=== PATIENT | male | born 1960 | race Caucasian/White ===

== ENCOUNTER 2018-12-26 07:46 | Observation (INO) | payer BC, OTHER ==
[2018-12-26] MEDS ORDERED: Aspirin 81 MG Tab.Chew PO ONE (07:50)
[2018-12-26] MEDS ORDERED: Sodium Chloride 0.9% 2.5 ML Syringe FLUSH PRN (07:50)
[2018-12-26] MEDS ORDERED: Sodium Chloride 0.9% 10 ML Syringe FLUSH PRN (07:50)
--- NOTE | 2018-12-26 07:53 | EDM.PDOC ---
ED HPI GENERAL MEDICAL PROBLEM - General Chief Complaint: Chest Pain Stated Complaint: CHEST PAIN Time Seen by Provider: 12/26/18 07:49 Source of Information: Reports: Patient History Limitations: Reports: No Limitations - History of Present Illness INITIAL COMMENTS - FREE TEXT/NARRATIVE: History of present illness: []Patient awoke with 6/10 substernal chest pain radiating to his jaw with sweatiness and shortness of breath. The episode has lasted about 30 minutes and came to the ER with his pain level at 3/10. Patient has a history of anxiety. Review of systems: As per history of present illness and below otherwise all systems reviewed and negative. Past medical history: As per history of present illness and as reviewed below otherwise noncontributory. Surgical history: As per history of present illness and as reviewed below otherwise noncontributory. Social history: No reported history of drug or alcohol abuse. Family history: As per history of present illness and as reviewed below otherwise noncontributory. Physical exam: General: Well developed, well nourished, diaphoretic HEENT: Atraumatic, normocephalic, pupils reactive, negative for conjunctival pallor or scleral icterus, mucous membranes moist, throat clear, neck supple, nontender, trachea midline. Lungs: Clear to auscultation, breath sounds equal bilaterally, chest nontender. Heart: S1S2, regular, negative for clicks, rubs, or JVD. Abdomen: NABS, Soft, nondistended, nontender. Negative for masses or hepatosplenomegaly. Negative for costovertebral tenderness. Pelvis: Stable nontender. Genitourinary: Deferred. Rectal: Deferred. Extremities: Atraumatic, negative for cords or calf pain. Neurovascular unremarkable. Neuro: Awake, alert, oriented. Cranial nerves II through XII unremarkable. Cerebellum unremarkable. Motor and sensory unremarkable throughout. Exam nonfocal. Skin:warm and dry Diagnostics: EKG, CBC, chemistry, troponin, BNP, chest x-ray Therapeutics: Aspirin, nitroglycerin ED Course: Stable, hospitalist will admit patient to observation Impression: Chest pain Prescriptions: None Plan: Admit for rule out NE Definitive disposition and diagnosis as appropriate pending reevaluation and review of above. Head Pain Score (Numeric/FACES): 2 left chest Pain Score (Numeric/FACES): 3 - Related Data Allergies Allergy/AdvReac Type Severity Reaction Status Date / Time No Known Allergies Allergy Verified 12/26/18 10:12 Home Meds: Home Meds Lisinopril 40 mg PO DAILY 12/26/18 [History] ED ROS GENERAL - Review of Systems Review Of Systems: See Below ED EXAM, GENERAL - Physical Exam Exam: See Below Course - Vital Signs Last Recorded V/S: Last Vital Signs Temp 98.5 F 12/26/18 12:00 Pulse 70 12/26/18 12:00 Resp 20 12/26/18 12:00 BP 145/73 H 12/26/18 12:00 Pulse Ox 97 12/26/18 12:00 - Orders/Labs/Meds Orders: Active Orders 24 hr Category Date Time Status Patient Status [ADT] Stat ADT 12/26/18 09:22 Active Cardiac Monitoring [RC] . DIRECTED Care 12/26/18 07:49 Active EKG Documentation Completion [RC] STAT Care 12/26/18 07:49 Active Oxygen Therapy Adult [Oxygen Therapy, ED] [RC] Care 12/26/18 08:21 Active ASDIRECTED Nitroglycerin [Nitrostat] Med 12/26/18 07:50 Active 0.4 mg SL Q5M PRN Sodium Chloride 0.9% [Saline Flush] Med 12/26/18 07:50 Active 10 ml FLUSH ASDIRECTED PRN Sodium Chloride 0.9% [Saline Flush] Med 12/26/18 07:50 Active 2.5 ml FLUSH ASDIRECTED PRN Saline Lock Insert [OM.PC] Stat Oth 12/26/18 07:49 Ordered Medication Orders Acetaminophen (Tylenol) 650 mg PO Q4H PRN PRN Reason: Pain Last Admin: 12/26/18 13:17 Dose: 650 mg Enoxaparin Sodium (Lovenox) 40 mg SUBCUT Q24H JAYCE Last Admin: 12/26/18 10:10 Dose: 40 mg Lisinopril (Prinivil) 40 mg PO BEDTIME JAYCE Nitroglycerin (Nitrostat) 0.4 mg SL Q5M PRN PRN Reason: Chest Pain Last Admin: 12/26/18 08:04 Dose: 0.4 mg Admin: 12/26/18 07:57 Dose: 0.4 mg Pantoprazole Sodium (Protonix) 40 mg PO ACBREAKFAST JAYCE Sodium Chloride (Saline Flush) 10 ml FLUSH ASDIRECTED PRN PRN Reason: Keep Vein Open Last Admin: 12/26/18 07:58 Dose: 10 ml Sodium Chloride (Saline Flush) 2.5 ml FLUSH ASDIRECTED PRN PRN Reason: Keep Vein Open Last Admin: 12/26/18 07:58 Dose: 2.5 ml Temazepam (Restoril) 15 mg PO BEDTIME PRN PRN Reason: Insomnia Labs: Laboratory Tests 12/26/18 12/26/18 12/26/18 Range/Units 07:50 07:50 07:50 WBC 7.87 (4.0-11.0) K/uL RBC 5.24 (4.50-5.90) M/uL Hgb 16.2 (13.0-17.0) g/dL Hct 48.3 (38.0-50.0) % MCV 92.2 (80.0-98.0) fL MCH 30.9 (27.0-32.0) pg MCHC 33.5 (31.0-37.0) g/dL RDW Std Deviation 42.8 (28.0-62.0) fl RDW Coeff of Bruno 13 (11.0-15.0) % Plt Count 233 (150-400) K/uL MPV 10.10 (7.40-12.00) fL Neut % (Auto) 59.5 (48.0-80.0) % Lymph % (Auto) 28.2 (16.0-40.0) % [place] % (Auto) 10.0 (0.0-15.0) % Eos % (Auto) 1.8 (0.0-7.0) % Baso % (Auto) 0.5 (0.0-1.5) % Neut # (Auto) 4.7 (1.4-5.7) K/uL Lymph # (Auto) 2.2 (0.6-2.4) K/uL [place] # (Auto) 0.8 (0.0-0.8) K/uL Eos # (Auto) 0.1 (0.0-0.7) K/uL Baso # (Auto) 0.0 (0.0-0.1) K/uL Nucleated RBC % 0.0 /100WBC Nucleated RBCs # 0 K/uL Sodium 141 (136-148) mmol/L Potassium 4.3 (3.5-5.1) mmol/L Chloride 105 (98-107) mmol/L Carbon Dioxide 26.6 (21.0-32.0) mmol/L BUN 20 H (7.0-18.0) mg/dL Creatinine 1.2 (0.8-1.3) mg/dL Est Cr Clr Drug Dosing 61.20 mL/min Estimated GFR (MDRD) > 60.0 ml/min Glucose 126 H (74-106) mg/dL Calcium 9.0 (8.5-10.1) mg/dL Total Bilirubin 0.7 (0.2-1.0) mg/dL AST 62 H (15-37) IU/L ALT 123 H (14-63) IU/L Alkaline Phosphatase 111 (46-116) U/L Troponin I < 0.050 (0.000-0.056) ng/mL B-Natriuretic Peptide 22 (<100) PG/ML Total Protein 7.2 (6.4-8.2) g/dL Albumin 3.8 (3.4-5.0) g/dL Globulin 3.4 (2.6-4.0) g/dL Albumin/Globulin Ratio 1.1 (0.9-1.6) Triglycerides (0-200) mg/dL Cholesterol (50-200) mg/dL LDL Cholesterol, Calc (60-180) mg/dL VLDL Cholesterol (5-55) mg/dL HDL Cholesterol (40-60) mg/dL Cholesterol/HDL Ratio (3.3-6.0) 12/26/18 Range/Units 07:50 WBC (4.0-11.0) K/uL RBC (4.50-5.90) M/uL Hgb (13.0-17.0) g/dL Hct (38.0-50.0) % MCV (80.0-98.0) fL MCH (27.0-32.0) pg MCHC (31.0-37.0) g/dL RDW Std Deviation (28.0-62.0) fl RDW Coeff of Bruno (11.0-15.0) % Plt Count (150-400) K/uL MPV (7.40-12.00) fL Neut % (Auto) (48.0-80.0) % Lymph % (Auto) (16.0-40.0) % [place] % (Auto) (0.0-15.0) % Eos % (Auto) (0.0-7.0) % Baso % (Auto) (0.0-1.5) % Neut # (Auto) (1.4-5.7) K/uL Lymph # (Auto) (0.6-2.4) K/uL [place] # (Auto) (0.0-0.8) K/uL Eos # (Auto) (0.0-0.7) K/uL Baso # (Auto) (0.0-0.1) K/uL Nucleated RBC % /100WBC Nucleated RBCs # K/uL Sodium (136-148) mmol/L Potassium (3.5-5.1) mmol/L Chloride (98-107) mmol/L Carbon Dioxide (21.0-32.0) mmol/L BUN (7.0-18.0) mg/dL Creatinine (0.8-1.3) mg/dL Est Cr Clr Drug Dosing mL/min Estimated GFR (MDRD) ml/min Glucose (74-106) mg/dL Calcium (8.5-10.1) mg/dL Total Bilirubin (0.2-1.0) mg/dL AST (15-37) IU/L ALT (14-63) IU/L Alkaline Phosphatase (46-116) U/L Troponin I (0.000-0.056) ng/mL B-Natriuretic Peptide (<100) PG/ML Total Protein (6.4-8.2) g/dL Albumin (3.4-5.0) g/dL Globulin (2.6-4.0) g/dL Albumin/Globulin Ratio (0.9-1.6) Triglycerides 143 (0-200) mg/dL Cholesterol 220 H (50-200) mg/dL LDL Cholesterol, Calc 155 (60-180) mg/dL VLDL Cholesterol 28 (5-55) mg/dL HDL Cholesterol 36 L (40-60) mg/dL Cholesterol/HDL Ratio 6.1 H (3.3-6.0) Meds: Medications Generic Name Dose Route Start Last Admin Trade Name Freq PRN Reason Stop Dose Admin Acetaminophen 650 mg 12/26/18 09:36 12/26/18 13:17 Tylenol PO 650 mg Q4H PRN Administration Pain Enoxaparin Sodium 40 mg 12/26/18 09:45 12/26/18 10:10 Lovenox SUBCUT 40 mg Q24H JAYCE Administration Lisinopril 40 mg 12/26/18 21:00 Prinivil PO BEDTIME JAYCE Nitroglycerin 0.4 mg 12/26/18 07:50 12/26/18 08:04 Nitrostat SL 0.4 mg Q5M PRN Administration Chest Pain Pantoprazole Sodium 40 mg 12/27/18 07:30 Protonix PO ACBREAKFAST JAYCE Sodium Chloride 10 ml 12/26/18 07:50 12/26/18 07:58 Saline Flush FLUSH 10 ml ASDIRECTED PRN Administration Keep Vein Open Sodium Chloride 2.5 ml 12/26/18 07:50 12/26/18 07:58 Saline Flush FLUSH 2.5 ml ASDIRECTED PRN Administration Keep Vein Open Temazepam 15 mg 12/26/18 09:36 Restoril PO BEDTIME PRN Insomnia Discontinued Medications Generic Name Dose Route Start Last Admin Trade Name Freq PRN Reason Stop Dose Admin Aspirin 324 mg 12/26/18 07:50 12/26/18 07:58 Aspirin PO 12/26/18 07:51 324 mg ONETIME ONE Administration Lisinopril 40 mg 12/26/18 10:00 12/26/18 11:25 Prinivil PO Not Given DAILY COUNTS INCLUDE 234 BEDS AT THE [facility] Morphine Sulfate 2 mg 12/26/18 08:44 12/26/18 09:16 Morphine IVPUSH 12/26/18 08:45 2 mg ONETIME ONE Administration Ondansetron HCl 4 mg 12/26/18 08:44 12/26/18 09:16 Zofran IVPUSH 12/26/18 08:45 4 mg ONETIME ONE Administration Departure - Departure Time of Disposition: 09:45 Disposition: Refer to Observation Condition: Good Clinical Impression: Chest pain Qualifiers: Chest pain type: unspecified Qualified Code(s): R07.9 - Chest pain, unspecified - My Orders Last 24 Hours: My Active Orders 12/26/18 07:49 Cardiac Monitoring [RC] . DIRECTED EKG Documentation Completion [RC] STAT Saline Lock Insert [OM.PC] Stat 12/26/18 07:50 Nitroglycerin [Nitrostat] 0.4 mg SL Q5M PRN Sodium Chloride 0.9% [Saline Flush] 10 ml FLUSH ASDIRECTED PRN Sodium Chloride 0.9% [Saline Flush] 2.5 ml FLUSH ASDIRECTED PRN 12/26/18 08:21 Oxygen Therapy Adult [Oxygen Therapy, ED] [RC] ASDIRECTED 12/26/18 09:22 Patient Status [ADT] Stat - Assessment/Plan Last 24 Hours: My Active Orders 12/26/18 07:49 Cardiac Monitoring [RC] . DIRECTED EKG Documentation Completion [RC] STAT Saline Lock Insert [OM.PC] Stat 12/26/18 07:50 Nitroglycerin [Nitrostat] 0.4 mg SL Q5M PRN Sodium Chloride 0.9% [Saline Flush] 10 ml FLUSH ASDIRECTED PRN Sodium Chloride 0.9% [Saline Flush] 2.5 ml FLUSH ASDIRECTED PRN 12/26/18 08:21 Oxygen Therapy Adult [Oxygen Therapy, ED] [RC] ASDIRECTED 12/26/18 09:22 Patient Status [ADT] Stat
[2018-12-26] MEDS: Nitroglycerin 0.4 MG Tab.SL SL PRN ×2 (07:57→08:04)
[2018-12-26 08:36] LABS: BLOOD UREA NITROGEN,BUN 20 mg/dL (7.0-18.0); CARBON DIOXIDE,CO2 26.6 mmol/L (21.0-32.0); CHLORIDE,CL 105 mmol/L (98-107); GLUCOSE RANDOM 126 mg/dL (74-106); POTASSIUM,K 4.3 mmol/L (3.5-5.1); SODIUM,NA 141 mmol/L (136-148)
--- NOTE | 2018-12-26 08:41 | CR ---
INDICATION: Left-sided chest pain with radiation to jaw/shoulder for 30 minutes. SOB. TECHNIQUE: Upright portable AP image of the chest. COMPARISON: None. FINDINGS: Lungs and pleural spaces clear. Heart borderline enlarged. Pulmonary veins normal in caliber. No significant osseous abnormality. IMPRESSION: 1. Borderline cardiomegaly. 2. Clear lungs. Dictated by Ronny Mejia MD @ Dec 26 2018 8:34AM Signed by Dr. Ronny Mejia @ Dec 26 2018 8:40AM
[2018-12-26] MEDS ORDERED: Ondansetron 4 MG/2 ML SDV IVPUSH ONE (08:44)
[2018-12-26] MEDS ORDERED: Morphine 2 MG/ML Syringe IVPUSH ONE (08:44)
[2018-12-26] MEDS ORDERED: Temazepam 15 MG Cap PO PRN (09:36)
[2018-12-26] MEDS ORDERED: Acetaminophen 325 MG Tab PO PRN (09:36)
[2018-12-26] MEDS ORDERED: Enoxaparin 40 MG/0.4 ML Syringe SUBCUT SCH (09:45)
--- NOTE | 2018-12-26 09:47 | PCM.HP.2 ---
<Farrukh Rdz - Last Filed: 12/26/18 10:32> H&P History of Present Illness - General Date of Service: 12/26/18 Admit Problem/Dx: Admission Diagnosis/Problem Admission Diagnosis/Problem Chest pain - History of Present Illness Initial Comments - Free Text/Narative: patient is a 58-year-old male with a significant past medical history of anxiety , GERD, asthma, obesity; presenting to [facility] ED secondary to chest pain. Mentions waking up and having a initially sharp pain in his chest which transformed into a pressure type sensation with radiation to left arm and some jaw discomfort as well. Patient states he woke up and had pain and was not woken up by the pain. Patient also was complaining of some sweating without shortness of breath. Denies fevers, or lower actually swelling. Patient did have some nausea and mild abdominal discomfort which states she is gotten better since admission. At bedside: patient is only endorsing a mild frontal headache. Otherwise denies any chest pain, shortness of breath, diarrhea, constipation, lower ext. swelling or any other acute symptoms. Medications: patient was on medication for anxiety however has not taken it for many years. Has uses albuterol once 3 months ago for shortness of breath and wheezing. Does endorse occasional reflux symptoms and uses [id number] Tums. Mentions having a big dinner last night and having to use Tums. left chest Pain Score (Numeric/FACES): 3 - Related Data Allergies/Adverse Reactions: Allergies Allergy/AdvReac Type Severity Reaction Status Date / Time No Known Allergies Allergy Verified 12/26/18 10:12 Home Medications: Home Meds Lisinopril 40 mg PO DAILY 12/26/18 [History] Past Medical History Cardiovascular History: Reports: Hypertension Psychiatric History: Reports: Anxiety, Depression - Infectious Disease History Infectious Disease History: Reports: Chicken Pox, Measles, Mumps - Past Surgical History Male Surgical History: Reports: Vasectomy Musculoskeletal Surgical History: Reports: Carpal Tunnel, Knee Replacement Social & Family History - Family History Cardiac: Reports: Heart Failure - Tobacco Use Smoking Status *Q: Never Smoker - Recreational Drug Use Recreational Drug Use: No H&P Review of Systems - Review of Systems: Review Of Systems: See Below General: Reports: No Symptoms, Diaphoresis. Denies: Fever, Chills, Malaise HEENT: Reports: No Symptoms Pulmonary: Reports: No Symptoms. Denies: Shortness of Breath, Wheezing Cardiovascular: Reports: Blood Pressure Problem. Denies: Chest Pain, Palpitations, Lightheadedness, Syncope Gastrointestinal: Reports: Nausea. Denies: Abdominal Pain, Constipation, Diarrhea, Decreased Appetite Genitourinary: Reports: No Symptoms Musculoskeletal: Reports: No Symptoms Psychiatric: Reports: No Symptoms. Denies: Confusion, Depression Neurological: Denies: Confusion, Dizziness Exam - Exam Exam: See Below - Vital Signs Vital Signs: Last Vital Signs Temp 96.4 F 12/26/18 07:50 Pulse 95 12/26/18 09:16 Resp 16 12/26/18 09:16 BP 136/86 12/26/18 09:16 Pulse Ox 98 12/26/18 09:16 Weight: 102.058 kg - Exam General: Alert, Oriented, Cooperative HEENT: Conjunctiva Clear, EOMI, Hearing Intact Neck: Supple, Trachea Midline Lungs: Clear to Auscultation, Normal Respiratory Effort Cardiovascular: Regular Rate, Regular Rhythm GI/Abdominal Exam: Normal Bowel Sounds, Soft, Non-Tender, Other (obese) Back Exam: Normal Inspection, Full Range of Motion Extremities: Normal Range of Motion, Non-Tender, No Pedal Edema Skin: Warm, Dry, Intact Neuro Extensive - Mental Status: Alert, Oriented x3, Normal Mood/Affect Psychiatric: Alert, Normal Affect, Normal Mood - Patient Data Lab Results Last 24 hrs: Laboratory Results - last 24 hr 12/26/18 12/26/18 12/26/18 Range/Units 07:50 07:50 07:50 WBC 7.87 (4.0-11.0) K/uL RBC 5.24 (4.50-5.90) M/uL Hgb 16.2 (13.0-17.0) g/dL Hct 48.3 (38.0-50.0) % MCV 92.2 (80.0-98.0) fL MCH 30.9 (27.0-32.0) pg MCHC 33.5 (31.0-37.0) g/dL RDW Std Deviation 42.8 (28.0-62.0) fl RDW Coeff of Bruno 13 (11.0-15.0) % Plt Count 233 (150-400) K/uL MPV 10.10 (7.40-12.00) fL Neut % (Auto) 59.5 (48.0-80.0) % Lymph % (Auto) 28.2 (16.0-40.0) % Dade % (Auto) 10.0 (0.0-15.0) % Eos % (Auto) 1.8 (0.0-7.0) % Baso % (Auto) 0.5 (0.0-1.5) % Neut # (Auto) 4.7 (1.4-5.7) K/uL Lymph # (Auto) 2.2 (0.6-2.4) K/uL Dade # (Auto) 0.8 (0.0-0.8) K/uL Eos # (Auto) 0.1 (0.0-0.7) K/uL Baso # (Auto) 0.0 (0.0-0.1) K/uL Nucleated RBC % 0.0 /100WBC Nucleated RBCs # 0 K/uL Sodium 141 (136-148) mmol/L Potassium 4.3 (3.5-5.1) mmol/L Chloride 105 (98-107) mmol/L Carbon Dioxide 26.6 (21.0-32.0) mmol/L BUN 20 H (7.0-18.0) mg/dL Creatinine 1.2 (0.8-1.3) mg/dL Est Cr Clr Drug Dosing 61.20 mL/min Estimated GFR (MDRD) > 60.0 ml/min Glucose 126 H (74-106) mg/dL Calcium 9.0 (8.5-10.1) mg/dL Total Bilirubin 0.7 (0.2-1.0) mg/dL AST 62 H (15-37) IU/L ALT 123 H (14-63) IU/L Alkaline Phosphatase 111 (46-116) U/L Troponin I < 0.050 (0.000-0.056) ng/mL B-Natriuretic Peptide 22 (<100) PG/ML Total Protein 7.2 (6.4-8.2) g/dL Albumin 3.8 (3.4-5.0) g/dL Globulin 3.4 (2.6-4.0) g/dL Albumin/Globulin Ratio 1.1 (0.9-1.6) Result Diagrams: 12/26/18 07:50 12/26/18 07:50 - Problem List (1) Chest pain SNOMED Code(s): 57136726 ICD Code: R07.9 - CHEST PAIN, UNSPECIFIED Status: Acute Current Visit: Yes (2) Obesity SNOMED Code(s): 971509213, 023269803 ICD Code: E66.9 - OBESITY, UNSPECIFIED Status: Acute Current Visit: Yes (3) GERD (gastroesophageal reflux disease) SNOMED Code(s): 337497633 ICD Code: K21.9 - GASTRO-ESOPHAGEAL REFLUX DISEASE WITHOUT ESOPHAGITIS Status: Acute Current Visit: Yes (4) Anxiety SNOMED Code(s): 50321058 ICD Code: F41.9 - ANXIETY DISORDER, UNSPECIFIED Status: Acute Current Visit: Yes (5) Asthma SNOMED Code(s): 766408029 ICD Code: J45.909 - UNSPECIFIED ASTHMA, UNCOMPLICATED Status: Acute Current Visit: Yes Problem List Initiated/Reviewed/Updated: Yes Orders Last 24hrs: Active Orders 24 hr Category Date Time Status Patient Status [ADT] Stat ADT 12/26/18 09:22 Active Activity as Tolerated [RC] .Routine Care 12/26/18 09:30 Active Cardiac Monitoring [RC] . DIRECTED Care 12/26/18 07:49 Active EKG Documentation Completion [RC] STAT Care 12/26/18 07:49 Active Intake and Output [RC] ASDIRECTED Care 12/26/18 09:30 Active Oxygen Therapy Adult [Oxygen Therapy, ED] [RC] Care 12/26/18 08:21 Active ASDIRECTED Telemetry Monitoring [Cardiac Monitoring] [RC] . Care 12/26/18 09:34 Active DIRECTED Vital Signs [RC] PER UNIT ROUTINE Care 12/26/18 09:30 Active Heart Healthy Diet [DIET] Diet 12/26/18 Lunch Active Acetaminophen [Tylenol] Med 12/26/18 09:36 Ordered 650 mg PO Q4H PRN Enoxaparin [Lovenox] Med 12/26/18 09:45 Ordered 40 mg SUBCUT Q24H Nitroglycerin [Nitrostat] Med 12/26/18 07:50 Active 0.4 mg SL Q5M PRN Pantoprazole [ProTONIX] Med 12/27/18 07:30 Ordered 40 mg PO ACBREAKFAST Sodium Chloride 0.9% [Saline Flush] Med 12/26/18 07:50 Active 10 ml FLUSH ASDIRECTED PRN Sodium Chloride 0.9% [Saline Flush] Med 12/26/18 07:50 Active 2.5 ml FLUSH ASDIRECTED PRN Temazepam [Restoril] Med 12/26/18 09:36 Ordered 15 mg PO BEDTIME PRN Saline Lock Insert [OM.PC] Stat Oth 12/26/18 07:49 Ordered Code Status [Resuscitation Status] Stat Resus Stat 12/26/18 09:29 Ordered Medication Orders Acetaminophen (Tylenol) 650 mg PO Q4H PRN PRN Reason: Pain Enoxaparin Sodium (Lovenox) 40 mg SUBCUT Q24H JAYCE Nitroglycerin (Nitrostat) 0.4 mg SL Q5M PRN PRN Reason: Chest Pain Last Admin: 12/26/18 08:04 Dose: 0.4 mg Admin: 12/26/18 07:57 Dose: 0.4 mg Pantoprazole Sodium (Protonix) 40 mg PO ACBREAKFAST JAYCE Sodium Chloride (Saline Flush) 10 ml FLUSH ASDIRECTED PRN PRN Reason: Keep Vein Open Last Admin: 12/26/18 07:58 Dose: 10 ml Sodium Chloride (Saline Flush) 2.5 ml FLUSH ASDIRECTED PRN PRN Reason: Keep Vein Open Last Admin: 12/26/18 07:58 Dose: 2.5 ml Temazepam (Restoril) 15 mg PO BEDTIME PRN PRN Reason: Insomnia Assessment/Plan Comment:: Assessment: 1. Chest pain with ACS rule out 2. Transaminitis 3. hypertension 4. Past medical history of asthma, anxiety, GERD, obesity plan: Admit observation. Full code. Intake outtake per routine. Vitals per routine. DVT prophylaxis: Lovenox 40 daily. GI prophylaxis: pantoprazole 40 daily. Activity: up ad cori. diet: cardiac 1. ACS rule out: telemetry. Repeat EKG. Troponin every 6 hours 3. Chest x-ray: borderline cardiomegaly. Aspirin daily. Repeat CBC CMP in a.m. 2. Hypertension: continue home medicine of lisinopril 40 daily 3. Past medical history: continue to monitor 4. Transaminitis: Marginal; we'll continue to monitor at this time. <[place],Rashel - Last Filed: 12/26/18 12:44> H&P History of Present Illness - General Admit Problem/Dx: Admission Diagnosis/Problem Admission Diagnosis/Problem Chest pain I have seen and examined the patient independently of medical staff specialist, Dr. Kendell MD. I have reviewed and agree with the plan of care as outlined for this patient by him. I have discussed the case with him. Please see orders. left chest Pain Score (Numeric/FACES): 3 Head Pain Score (Numeric/FACES): 2 Exam - Vital Signs Vital Signs: Last Vital Signs Temp 36.4 C 12/26/18 09:30 Pulse 67 12/26/18 09:30 Resp 16 12/26/18 09:30 BP 139/81 12/26/18 09:30 Pulse Ox 95 12/26/18 09:30 - Patient Data Lab Results Last 24 hrs: Laboratory Results - last 24 hr 12/26/18 12/26/18 12/26/18 Range/Units 07:50 07:50 07:50 WBC 7.87 (4.0-11.0) K/uL RBC 5.24 (4.50-5.90) M/uL Hgb 16.2 (13.0-17.0) g/dL Hct 48.3 (38.0-50.0) % MCV 92.2 (80.0-98.0) fL MCH 30.9 (27.0-32.0) pg MCHC 33.5 (31.0-37.0) g/dL RDW Std Deviation 42.8 (28.0-62.0) fl RDW Coeff of Bruno 13 (11.0-15.0) % Plt Count 233 (150-400) K/uL MPV 10.10 (7.40-12.00) fL Neut % (Auto) 59.5 (48.0-80.0) % Lymph % (Auto) 28.2 (16.0-40.0) % Dade % (Auto) 10.0 (0.0-15.0) % Eos % (Auto) 1.8 (0.0-7.0) % Baso % (Auto) 0.5 (0.0-1.5) % Neut # (Auto) 4.7 (1.4-5.7) K/uL Lymph # (Auto) 2.2 (0.6-2.4) K/uL Dade # (Auto) 0.8 (0.0-0.8) K/uL Eos # (Auto) 0.1 (0.0-0.7) K/uL Baso # (Auto) 0.0 (0.0-0.1) K/uL Nucleated RBC % 0.0 /100WBC Nucleated RBCs # 0 K/uL Sodium 141 (136-148) mmol/L Potassium 4.3 (3.5-5.1) mmol/L Chloride 105 (98-107) mmol/L Carbon Dioxide 26.6 (21.0-32.0) mmol/L BUN 20 H (7.0-18.0) mg/dL Creatinine 1.2 (0.8-1.3) mg/dL Est Cr Clr Drug Dosing 61.20 mL/min Estimated GFR (MDRD) > 60.0 ml/min Glucose 126 H (74-106) mg/dL Calcium 9.0 (8.5-10.1) mg/dL Total Bilirubin 0.7 (0.2-1.0) mg/dL AST 62 H (15-37) IU/L ALT 123 H (14-63) IU/L Alkaline Phosphatase 111 (46-116) U/L Troponin I < 0.050 (0.000-0.056) ng/mL B-Natriuretic Peptide 22 (<100) PG/ML Total Protein 7.2 (6.4-8.2) g/dL Albumin 3.8 (3.4-5.0) g/dL Globulin 3.4 (2.6-4.0) g/dL Albumin/Globulin Ratio 1.1 (0.9-1.6) Triglycerides (0-200) mg/dL Cholesterol (50-200) mg/dL LDL Cholesterol, Calc (60-180) mg/dL VLDL Cholesterol (5-55) mg/dL HDL Cholesterol (40-60) mg/dL Cholesterol/HDL Ratio (3.3-6.0) 12/26/18 Range/Units 07:50 WBC (4.0-11.0) K/uL RBC (4.50-5.90) M/uL Hgb (13.0-17.0) g/dL Hct (38.0-50.0) % MCV (80.0-98.0) fL MCH (27.0-32.0) pg MCHC (31.0-37.0) g/dL RDW Std Deviation (28.0-62.0) fl RDW Coeff of Bruno (11.0-15.0) % Plt Count (150-400) K/uL MPV (7.40-12.00) fL Neut % (Auto) (48.0-80.0) % Lymph % (Auto) (16.0-40.0) % Dade % (Auto) (0.0-15.0) % Eos % (Auto) (0.0-7.0) % Baso % (Auto) (0.0-1.5) % Neut # (Auto) (1.4-5.7) K/uL Lymph # (Auto) (0.6-2.4) K/uL Dade # (Auto) (0.0-0.8) K/uL Eos # (Auto) (0.0-0.7) K/uL Baso # (Auto) (0.0-0.1) K/uL Nucleated RBC % /100WBC Nucleated RBCs # K/uL Sodium (136-148) mmol/L Potassium (3.5-5.1) mmol/L Chloride (98-107) mmol/L Carbon Dioxide (21.0-32.0) mmol/L BUN (7.0-18.0) mg/dL Creatinine (0.8-1.3) mg/dL Est Cr Clr Drug Dosing mL/min Estimated GFR (MDRD) ml/min Glucose (74-106) mg/dL Calcium (8.5-10.1) mg/dL Total Bilirubin (0.2-1.0) mg/dL AST (15-37) IU/L ALT (14-63) IU/L Alkaline Phosphatase (46-116) U/L Troponin I (0.000-0.056) ng/mL B-Natriuretic Peptide (<100) PG/ML Total Protein (6.4-8.2) g/dL Albumin (3.4-5.0) g/dL Globulin (2.6-4.0) g/dL Albumin/Globulin Ratio (0.9-1.6) Triglycerides 143 (0-200) mg/dL Cholesterol 220 H (50-200) mg/dL LDL Cholesterol, Calc 155 (60-180) mg/dL VLDL Cholesterol 28 (5-55) mg/dL HDL Cholesterol 36 L (40-60) mg/dL Cholesterol/HDL Ratio 6.1 H (3.3-6.0) Result Diagrams: 12/26/18 07:50 12/26/18 07:50 Orders Last 24hrs: Active Orders 24 hr Category Date Time Status Patient Status [ADT] Stat ADT 12/26/18 09:22 Active Activity as Tolerated [RC] .Routine Care 12/26/18 09:30 Active Cardiac Monitoring [RC] . DIRECTED Care 12/26/18 07:49 Active EKG Documentation Completion [RC] STAT Care 12/26/18 07:49 Active EKG Documentation Completion [RC] URGENT Care 12/26/18 10:25 Active Intake and Output [RC] Q12H Care 12/26/18 09:30 Active Oxygen Therapy Adult [Oxygen Therapy, ED] [RC] Care 12/26/18 08:21 Active ASDIRECTED Telemetry Monitoring [Cardiac Monitoring] [RC] . Care 12/26/18 09:34 Active DIRECTED Vital Signs [RC] PER UNIT ROUTINE Care 12/26/18 09:30 Active Heart Healthy Diet [DIET] Diet 12/26/18 Lunch Active TROPONIN I [CHEM] Routine Lab 12/26/18 14:00 Ordered Acetaminophen [Tylenol] Med 12/26/18 09:36 Active 650 mg PO Q4H PRN Enoxaparin [Lovenox] Med 12/26/18 09:45 Active 40 mg SUBCUT Q24H Lisinopril [Prinivil] Med 12/26/18 21:00 Active 40 mg PO BEDTIME Nitroglycerin [Nitrostat] Med 12/26/18 07:50 Active 0.4 mg SL Q5M PRN Pantoprazole [ProTONIX] Med 12/27/18 07:30 Active 40 mg PO ACBREAKFAST Sodium Chloride 0.9% [Saline Flush] Med 12/26/18 07:50 Active 10 ml FLUSH ASDIRECTED PRN Sodium Chloride 0.9% [Saline Flush] Med 12/26/18 07:50 Active 2.5 ml FLUSH ASDIRECTED PRN Temazepam [Restoril] Med 12/26/18 09:36 Active 15 mg PO BEDTIME PRN Saline Lock Insert [OM.PC] Stat Oth 12/26/18 07:49 Ordered Code Status [Resuscitation Status] Stat Resus Stat 12/26/18 09:29 Ordered Medication Orders Acetaminophen (Tylenol) 650 mg PO Q4H PRN PRN Reason: Pain Enoxaparin Sodium (Lovenox) 40 mg SUBCUT Q24H JAYCE Last Admin: 12/26/18 10:10 Dose: 40 mg Lisinopril (Prinivil) 40 mg PO BEDTIME JAYCE Nitroglycerin (Nitrostat) 0.4 mg SL Q5M PRN PRN Reason: Chest Pain Last Admin: 12/26/18 08:04 Dose: 0.4 mg Admin: 12/26/18 07:57 Dose: 0.4 mg Pantoprazole Sodium (Protonix) 40 mg PO ACBREAKFAST [facility] Sodium Chloride (Saline Flush) 10 ml FLUSH ASDIRECTED PRN PRN Reason: Keep Vein Open Last Admin: 12/26/18 07:58 Dose: 10 ml Sodium Chloride (Saline Flush) 2.5 ml FLUSH ASDIRECTED PRN PRN Reason: Keep Vein Open Last Admin: 12/26/18 07:58 Dose: 2.5 ml Temazepam (Restoril) 15 mg PO BEDTIME PRN PRN Reason: Insomnia
[2018-12-26] MEDS ORDERED: Lisinopril 10 MG Tab PO SCH ×2 (10:00→21:00)
[2018-12-26] MEDS ORDERED: Docusate Sodium 100 MG Cap PO PRN (18:04)
[2018-12-26] MEDS ORDERED: LORazepam 2 MG/ML SDV IVPUSH ONE (18:41)
[2018-12-26] MEDS ORDERED: Pantoprazole 40 MG Tab.CR PO ONE (21:00)
[2018-12-27 06:39] LABS: BLOOD UREA NITROGEN,BUN 17 mg/dL (7.0-18.0); CARBON DIOXIDE,CO2 27.9 mmol/L (21.0-32.0); CHLORIDE,CL 104 mmol/L (98-107); GLUCOSE RANDOM 107 mg/dL (74-106); POTASSIUM,K 4.6 mmol/L (3.5-5.1); SODIUM,NA 140 mmol/L (136-148)
[2018-12-27] MEDS ORDERED: Pantoprazole 40 MG Tab.CR PO SCH (07:30)
[2018-12-27] MEDS ORDERED: LORazepam 2 MG/ML SDV IVPUSH ONE (07:51)
--- NOTE | 2018-12-27 09:42 | PCM.DCSUM1 ---
<Farrukh Rdz - Last Filed: 12/27/18 09:36> Discharge Summary - Hospital Course Free Text/Narrative:: discharge summary: Admission date: December 26, 2018 Discharge date: December 27, 2018 Admission diagnoses: chest pain for ACS rule out Past medical history: hypertension, anxiety, obesity Discharge diagnoses: chest pain most likely secondary to anxiety versus GERD w/ ACS ruled out Past medical history: hypertension, anxiety, obesity Consultations: none Procedures: none Hospital course: Patient is a 58-year-old male with a past medical history of hypertension anxiety and obesity presenting with chest pain. States he woke up in the morning with chest pain which initially started off as a stabbing pain which transformed to a pressure-like sensation with radiation into the left arm; has had episodes in the past and was attributed to anxiety however this was more painful than usual; on arrival to [facility] ED patient was sinus on EKG, troponin 3 was negative, given ASA; admitted overnight for observation. Patient had another episode of chest discomfort at 1800 hrs.; EKG was within normal limits, patient given 1 dose of Ativan with resolution of symptoms. Following morning symptoms returned with resolution with Ativan; discussed anxiety history patient and recommended hydroxyzine for future anxiety episodes. Also recommended follow-up PCP; patient's PCP is located in [place]. And will follow up with him. Patient stable on discharge; no other complaints at this time. Discharge condition: stable Discharge instructions: advised to contact provider if symptoms of fever, chills , bodies, chest pain, shortness of breath, new symptoms against baseline develop. Disposition: home Discharge medications: lisinopril 40 Hydroxyzine 25-50 3 times a day when necessary for anxiety 5 days Follow-up: patient was followed primary care physician within 7-10 days to discuss anxiety and other health issues. - Discharge Data Discharge Date: 12/27/18 Discharge Disposition: Home, Self-Care 01 Condition: Fair - Referral to Home Health Primary Care Physician: PCP Unknown - Discharge Diagnosis/Problem(s) (1) Chest pain SNOMED Code(s): 24862853 ICD Code: R07.9 - CHEST PAIN, UNSPECIFIED Status: Acute Qualifiers: Chest pain type: unspecified Qualified Code(s): R07.9 - Chest pain, unspecified (2) Obesity SNOMED Code(s): 382534009, 399030685 ICD Code: E66.9 - OBESITY, UNSPECIFIED Status: Acute (3) GERD (gastroesophageal reflux disease) SNOMED Code(s): 597101822 ICD Code: K21.9 - GASTRO-ESOPHAGEAL REFLUX DISEASE WITHOUT ESOPHAGITIS Status: Acute (4) Anxiety SNOMED Code(s): 91449188 ICD Code: F41.9 - ANXIETY DISORDER, UNSPECIFIED Status: Acute (5) Asthma SNOMED Code(s): 852089381 ICD Code: J45.909 - UNSPECIFIED ASTHMA, UNCOMPLICATED Status: Acute - Patient Instructions Diet: Heart Healthy Diet Driving: May Drive Today Showering/Bathing: May Shower Notify Provider of: Fever, Increased Pain, Nausea and/or Vomiting Other/Special Instructions: Advised to contact [facility] if symptoms of chest pain, shortness of breath, headache or other new symptoms develop against baseline. - Discharge Plan *PRESCRIPTION DRUG MONITORING PROGRAM REVIEWED*: No *COPY OF PRESCRIPTION DRUG MONITORING REPORT IN PATIENT SYBIL: No Prescriptions/Med Rec: hydrOXYzine HCl [Atarax] 25 mg PO TID PRN 5 Days #15 tab PRN Reason: Anxiety Home Medications: Home Meds Lisinopril 40 mg PO DAILY 12/26/18 [History] Acetaminophen [Tylenol] 650 mg PO Q4H PRN tablet 12/27/18 [Rx] Pantoprazole [ProTONIX] 40 mg PO ACBREAKFAST tab.cr 12/27/18 [Rx] hydrOXYzine HCl [Atarax] 25 mg PO TID PRN 5 Days #15 tab 12/27/18 [Rx] Patient Handouts: Nonspecific Chest Pain, [id number], Living With Anxiety, Hydroxyzine capsules or tablets - Discharge Summary/Plan Comment DC Time >30 min.: No - Patient Data Vitals - Most Recent: Last Vital Signs Temp 97.7 F 12/27/18 08:18 Pulse 77 12/27/18 08:00 Resp 16 12/27/18 08:00 BP 128/71 12/27/18 08:00 Pulse Ox 95 12/27/18 08:00 Weight - Most Recent: 102.058 kg I&O - Last 24 hours: Intake & Output 12/26/18 12/27/18 12/27/18 22:59 06:59 14:59 Intake Total 640 630 Output Total 200 640 Balance 440 -10 Lab Results - Last 24 hrs: Laboratory Results - last 24 hr 12/26/18 12/26/18 12/26/18 Range/Units 07:50 14:03 20:27 WBC (4.0-11.0) K/uL RBC (4.50-5.90) M/uL Hgb (13.0-17.0) g/dL Hct (38.0-50.0) % MCV (80.0-98.0) fL MCH (27.0-32.0) pg MCHC (31.0-37.0) g/dL RDW Std Deviation (28.0-62.0) fl RDW Coeff of Bruno (11.0-15.0) % Plt Count (150-400) K/uL MPV (7.40-12.00) fL Nucleated RBC % /100WBC Nucleated RBCs # K/uL Sodium (136-148) mmol/L Potassium (3.5-5.1) mmol/L Chloride (98-107) mmol/L Carbon Dioxide (21.0-32.0) mmol/L BUN (7.0-18.0) mg/dL Creatinine (0.8-1.3) mg/dL Est Cr Clr Drug Dosing mL/min Estimated GFR (MDRD) ml/min Glucose (74-106) mg/dL Calcium (8.5-10.1) mg/dL Total Bilirubin (0.2-1.0) mg/dL AST (15-37) IU/L ALT (14-63) IU/L Alkaline Phosphatase (46-116) U/L Troponin I < 0.050 < 0.050 (0.000-0.056) ng/mL Total Protein (6.4-8.2) g/dL Albumin (3.4-5.0) g/dL Globulin (2.6-4.0) g/dL Albumin/Globulin Ratio (0.9-1.6) Triglycerides 143 (0-200) mg/dL Cholesterol 220 H (50-200) mg/dL LDL Cholesterol, Calc 155 (60-180) mg/dL VLDL Cholesterol 28 (5-55) mg/dL HDL Cholesterol 36 L (40-60) mg/dL Cholesterol/HDL Ratio 6.1 H (3.3-6.0) 12/27/18 12/27/18 Range/Units 05:47 05:47 WBC 6.95 (4.0-11.0) K/uL RBC 5.00 (4.50-5.90) M/uL Hgb 15.4 (13.0-17.0) g/dL Hct 46.1 (38.0-50.0) % MCV 92.2 (80.0-98.0) fL MCH 30.8 (27.0-32.0) pg MCHC 33.4 (31.0-37.0) g/dL RDW Std Deviation 42.8 (28.0-62.0) fl RDW Coeff of Bruno 13 (11.0-15.0) % Plt Count 206 (150-400) K/uL MPV 10.20 (7.40-12.00) fL Nucleated RBC % 0.0 /100WBC Nucleated RBCs # 0 K/uL Sodium 140 (136-148) mmol/L Potassium 4.6 (3.5-5.1) mmol/L Chloride 104 (98-107) mmol/L Carbon Dioxide 27.9 (21.0-32.0) mmol/L BUN 17 (7.0-18.0) mg/dL Creatinine 1.1 (0.8-1.3) mg/dL Est Cr Clr Drug Dosing 66.77 mL/min Estimated GFR (MDRD) > 60.0 ml/min Glucose 107 H (74-106) mg/dL Calcium 8.3 L (8.5-10.1) mg/dL Total Bilirubin 0.8 (0.2-1.0) mg/dL AST 49 H (15-37) IU/L ALT 108 H (14-63) IU/L Alkaline Phosphatase 100 (46-116) U/L Troponin I (0.000-0.056) ng/mL Total Protein 6.6 (6.4-8.2) g/dL Albumin 3.4 (3.4-5.0) g/dL Globulin 3.2 (2.6-4.0) g/dL Albumin/Globulin Ratio 1.1 (0.9-1.6) Triglycerides (0-200) mg/dL Cholesterol (50-200) mg/dL LDL Cholesterol, Calc (60-180) mg/dL VLDL Cholesterol (5-55) mg/dL HDL Cholesterol (40-60) mg/dL Cholesterol/HDL Ratio (3.3-6.0) Med Orders - Current: Current Medications Acetaminophen (Tylenol) 650 mg PO Q4H PRN PRN Reason: Pain Last Admin: 12/26/18 13:17 Dose: 650 mg Docusate Sodium (Colace) 100 mg PO DAILY PRN PRN Reason: Constipation Enoxaparin Sodium (Lovenox) 40 mg SUBCUT Q24H [facility] Last Admin: 12/26/18 10:10 Dose: 40 mg Lisinopril (Prinivil) 40 mg PO BEDTIME [facility] Last Admin: 12/26/18 20:19 Dose: 40 mg Nitroglycerin (Nitrostat) 0.4 mg SL Q5M PRN PRN Reason: Chest Pain Last Admin: 12/26/18 08:04 Dose: 0.4 mg Pantoprazole Sodium (Protonix) 40 mg PO ACBREAKFAST [facility] Last Admin: 12/27/18 06:51 Dose: 40 mg Sodium Chloride (Saline Flush) 10 ml FLUSH ASDIRECTED PRN PRN Reason: Keep Vein Open Last Admin: 12/26/18 07:58 Dose: 10 ml Sodium Chloride (Saline Flush) 2.5 ml FLUSH ASDIRECTED PRN PRN Reason: Keep Vein Open Last Admin: 12/26/18 07:58 Dose: 2.5 ml Temazepam (Restoril) 15 mg PO BEDTIME PRN PRN Reason: Insomnia Discontinued Medications Aspirin (Aspirin) 324 mg PO ONETIME ONE Stop: 12/26/18 07:51 Last Admin: 12/26/18 07:58 Dose: 324 mg Lisinopril (Prinivil) 40 mg PO DAILY [facility] Last Admin: 12/26/18 11:25 Dose: Not Given Lorazepam (Ativan) 1 mg IVPUSH ONETIME ONE Stop: 12/26/18 18:42 Last Admin: 12/26/18 18:58 Dose: 1 mg Lorazepam (Ativan) 1 mg IVPUSH ONETIME ONE Stop: 12/27/18 07:52 Last Admin: 12/27/18 08:05 Dose: 1 mg Morphine Sulfate (Morphine) 2 mg IVPUSH ONETIME ONE Stop: 12/26/18 08:45 Last Admin: 12/26/18 09:16 Dose: 2 mg Ondansetron HCl (Zofran) 4 mg IVPUSH ONETIME ONE Stop: 12/26/18 08:45 Last Admin: 12/26/18 09:16 Dose: 4 mg Pantoprazole Sodium (Protonix) 40 mg PO BEDTIME ONE Stop: 12/26/18 21:01 Last Admin: 12/26/18 20:18 Dose: 40 mg <Jono Osborne - Last Filed: 12/27/18 17:04> Discharge Summary - Hospital Course Free Text/Narrative:: I have seen and examined the patient independently of medical language specialist, Dr. Kendell MD. I have reviewed and agree with the plan of care as outlined for this patient by him. I have discussed the case with him. Please see orders. - Referral to Home Health Primary Care Physician: PCP Unknown - Patient Data Vitals - Most Recent: Last Vital Signs Temp 36.5 C 12/27/18 08:18 Pulse 77 12/27/18 08:00 Resp 16 12/27/18 08:00 BP 128/71 12/27/18 08:00 Pulse Ox 95 12/27/18 08:00 I&O - Last 24 hours: Intake & Output 12/27/18 12/27/18 12/27/18 06:59 14:59 22:59 Intake Total 630 500 Output Total 640 300 Balance -10 200 Lab Results - Last 24 hrs: Laboratory Results - last 24 hr 12/26/18 12/27/18 12/27/18 Range/Units 20:27 05:47 05:47 WBC 6.95 (4.0-11.0) K/uL RBC 5.00 (4.50-5.90) M/uL Hgb 15.4 (13.0-17.0) g/dL Hct 46.1 (38.0-50.0) % MCV 92.2 (80.0-98.0) fL MCH 30.8 (27.0-32.0) pg MCHC 33.4 (31.0-37.0) g/dL RDW Std Deviation 42.8 (28.0-62.0) fl RDW Coeff of Bruno 13 (11.0-15.0) % Plt Count 206 (150-400) K/uL MPV 10.20 (7.40-12.00) fL Nucleated RBC % 0.0 /100WBC Nucleated RBCs # 0 K/uL Sodium 140 (136-148) mmol/L Potassium 4.6 (3.5-5.1) mmol/L Chloride 104 (98-107) mmol/L Carbon Dioxide 27.9 (21.0-32.0) mmol/L BUN 17 (7.0-18.0) mg/dL Creatinine 1.1 (0.8-1.3) mg/dL Est Cr Clr Drug Dosing 66.77 mL/min Estimated GFR (MDRD) > 60.0 ml/min Glucose 107 H (74-106) mg/dL Calcium 8.3 L (8.5-10.1) mg/dL Total Bilirubin 0.8 (0.2-1.0) mg/dL AST 49 H (15-37) IU/L ALT 108 H (14-63) IU/L Alkaline Phosphatase 100 (46-116) U/L Troponin I < 0.050 (0.000-0.056) ng/mL Total Protein 6.6 (6.4-8.2) g/dL Albumin 3.4 (3.4-5.0) g/dL Globulin 3.2 (2.6-4.0) g/dL Albumin/Globulin Ratio 1.1 (0.9-1.6) Med Orders - Current: Current Medications Discontinued Medications Acetaminophen (Tylenol) 650 mg PO Q4H PRN PRN Reason: Pain Last Admin: 12/26/18 13:17 Dose: 650 mg Aspirin (Aspirin) 324 mg PO ONETIME ONE Stop: 12/26/18 07:51 Last Admin: 12/26/18 07:58 Dose: 324 mg Docusate Sodium (Colace) 100 mg PO DAILY PRN PRN Reason: Constipation Enoxaparin Sodium (Lovenox) 40 mg SUBCUT Q24H [facility] Last Admin: 12/26/18 10:10 Dose: 40 mg Lisinopril (Prinivil) 40 mg PO DAILY [facility] Last Admin: 12/26/18 11:25 Dose: Not Given Lisinopril (Prinivil) 40 mg PO BEDTIME [facility] Last Admin: 12/26/18 20:19 Dose: 40 mg Lorazepam (Ativan) 1 mg IVPUSH ONETIME ONE Stop: 12/26/18 18:42 Last Admin: 12/26/18 18:58 Dose: 1 mg Lorazepam (Ativan) 1 mg IVPUSH ONETIME ONE Stop: 12/27/18 07:52 Last Admin: 12/27/18 08:05 Dose: 1 mg Morphine Sulfate (Morphine) 2 mg IVPUSH ONETIME ONE Stop: 12/26/18 08:45 Last Admin: 12/26/18 09:16 Dose: 2 mg Nitroglycerin (Nitrostat) 0.4 mg SL Q5M PRN PRN Reason: Chest Pain Last Admin: 12/26/18 08:04 Dose: 0.4 mg Ondansetron HCl (Zofran) 4 mg IVPUSH ONETIME ONE Stop: 12/26/18 08:45 Last Admin: 12/26/18 09:16 Dose: 4 mg Pantoprazole Sodium (Protonix) 40 mg PO ACBREAKFAST [facility] Last Admin: 12/27/18 06:51 Dose: 40 mg Pantoprazole Sodium (Protonix) 40 mg PO BEDTIME ONE Stop: 12/26/18 21:01 Last Admin: 12/26/18 20:18 Dose: 40 mg Sodium Chloride (Saline Flush) 10 ml FLUSH ASDIRECTED PRN PRN Reason: Keep Vein Open Last Admin: 12/26/18 07:58 Dose: 10 ml Sodium Chloride (Saline Flush) 2.5 ml FLUSH ASDIRECTED PRN PRN Reason: Keep Vein Open Last Admin: 12/26/18 07:58 Dose: 2.5 ml Temazepam (Restoril) 15 mg PO BEDTIME PRN PRN Reason: Insomnia
== END 2018-12-27 10:30 | disposition home or self-care (01) ==
LOC: MW.ED 07:46 → MW.MS 09:29
PROVIDERS: ADMIT Internal Medicine; ATTEND Internal Medicine
DX: R07.9 Chest pain, unspecified (principal); I10 Essential (primary) hypertension; F41.9 Anxiety disorder, unspecified; K21.9 Gastro-esophageal reflux disease without esophagitis; J45.909 Unspecified asthma, uncomplicated; F32.9 Major depressive disorder, single episode, unspecified; E66.9 Obesity, unspecified; Z79.899 Other long term (current) drug therapy; Z68.35 Body mass index [BMI] 35.0-35.9, adult
CPT/HCPCS: 36415; 71045; 80053; 80061; 83880; 84484; 85025; 85027; 93005; 96372; 96374; 96375; 96376; 99285; A9270; G0378; J1650; J2060; J2270; J2405